=== PATIENT | female | born 1965 | race Caucasian/White ===

== ENCOUNTER → 2018-04-01 | Outpatient (CLI) | payer OTHER ==
--- NOTE | 2018-04-01 12:31 | Diagnostic Imaging Report ---
EXAMINATION: PA and lateral views of the chest. COMPARISON: None CLINICAL HISTORY: Bronchitis DISCUSSION: The lungs are well-inflated. No focal airspace consolidation, pleural effusion, or pneumothorax. Dense nodular opacity in the retrocardiac region may represent a lower lobe calcified granuloma or a vessel viewed end-on. Cardio mediastinal contour and pulmonary vasculature are within normal limits. No acute osseous abnormality. IMPRESSION: No acute cardiopulmonary abnormality. No consolidative pneumonia. Signed by: Dr. Job Mistry M.D. on 04/01/2018 12:28 PM
== END ==
LOC: RAD 11:25
PROVIDERS: ATTEND Family Medicine
DX: J40 Bronchitis, not specified as acute or chronic (principal)
CPT/HCPCS: 71046

== ENCOUNTER → 2022-06-09 | Day surgery (SDC) | payer OTHER ==
[~2022-06-09] MED LIST: BIOTIN1 MG PO; CRESTOR10 MG PO; DYRENIUM50 MG PO; FENTANYL CITRATE/PF 100MCG/2 ML INJ ONE; LIDOCAINE HCL 2% LOCAL INJ 5 ML SDV VIAL INJ ONE; MAGNESIUM PO; METOCLOPRAMIDE HCL 10 MG/2ML VIAL ONE; MULTI-VITAMIN1 EACH PO; OMEGA 3 FISH O1 EACH PO; OMEPRAZOLE40 MG PO; PROPOFOL IV EMULSION 50 ML IV ONE; SYMBICORT 16010.2 GM INH; VERAPAMIL ER120 MG PO; VITAMIN D310 MCG PO; VITAMIN E400 UNI1 PO
[2022-06-09 14:35] VITALS: BP 139/96
== END | disposition home or self-care (01) ==
LOC: OR 11:49
PROVIDERS: ATTEND Internal Medicine Gastroenterology
DX: Z12.11 Encounter for screening for malignant neoplasm of colon (principal); D12.2 Benign neoplasm of ascending colon; K29.50 Unspecified chronic gastritis without bleeding; K20.90 Esophagitis, unspecified without bleeding; K64.8 Other hemorrhoids; Z71.3 Dietary counseling and surveillance; I10 Essential (primary) hypertension; F41.9 Anxiety disorder, unspecified; Z88.0 Allergy status to penicillin; Z79.899 Other long term (current) drug therapy; Z68.27 Body mass index [BMI] 27.0-27.9, adult; Z85.3 Personal history of malignant neoplasm of breast; Z86.16 Personal history of COVID-19
CPT/HCPCS: 43239; 45385; 93005; C9113; J2001; J2704; J2765; J3010

== ENCOUNTER 2024-08-07 06:54 | Observation (INO) | payer OTHER ==
[2024-08-01 12:54] LABS: BASOPHILS % 0.3 % (0.0-1.0); EOSINOPHILS # (AUTO) 0.1 (0.0-0.4); EOSINOPHILS % 1.2 % (0.0-6.0); HEMATOCRIT 42.5 % (34.2-44.1); HEMOGLOBIN 14.4 g/dL (12.0-16.0); LYMPHOCYTES # (AUTO) 2.1 (1.0-3.2); LYMPHOCYTES % 35.4 % (18.0-39.1); MEAN CORPUSCULAR HEMOGLOBIN 34.3 pg (28-32); MEAN CORPUSCULAR HGB CONC 33.9 g/dL (31-35); MEAN CORPUSCULAR VOLUME 101.2 fL (81-99); MONOCYTES # (AUTO) 0.6 (0.2-0.8); MONOCYTES % 10.7 % (4.4-11.3); NEUTROPHILS # (AUTO) 3.1 (2.1-6.9); NEUTROPHILS % 52.2 % (38.7-80.0); PLATELET COUNT 217 x10e3/uL (140-360); RED CELL DISTRIBUTION WIDTH 13.1 % (11.7-14.4); WHITE BLOOD COUNT 5.87 x10e3/uL (4.8-10.8)
[2024-08-01 13:21] LABS: ANION GAP 16.6 mmol/L (8-16); CALCIUM 9.2 mg/dL (8.4-10.2); CREATININE, SERUM 0.94 mg/dL (0.57-1.11); POTASSIUM 3.6 mmol/L (3.5-5.1)
[~2024-08-07] VITALS: Ht 157.5 cm; Wt 69.9 kg
[~2024-08-07 06:54] MED LIST changes: -FENTANYL CITRATE/PF 100MCG/2 ML INJ ONE; -LIDOCAINE HCL 2% LOCAL INJ 5 ML SDV VIAL INJ ONE; -METOCLOPRAMIDE HCL 10 MG/2ML VIAL ONE; -PROPOFOL IV EMULSION 50 ML IV ONE; +[UNRECOGNIZED DRUG - OTHER] PO
[2024-08-07] MEDS ORDERED: METOPROLOL TART25 MG PO (07:53)
[2024-08-07] MEDS ORDERED: PROPOFOL IV EMULSION 10 MG/ML 20 ML VIAL ONE (09:13)
[2024-08-07] MEDS ORDERED: MIDAZOLAM HCL 2 MG/2 ML VIAL ONE (09:14)
[2024-08-07] MEDS ORDERED: DEXAMETHASONE SOD PHOS INJ 4 MG/ML SDV ONE (09:14)
[2024-08-07] MEDS ORDERED: FENTANYL CITRATE/PF 100MCG/2 ML INJ ONE (09:14)
[2024-08-07] MEDS ORDERED: LIDOCAINE HCL 2% LOCAL INJ 5 ML SDV VIAL INJ ONE (09:14)
[2024-08-07] MEDS ORDERED: ONDANSETRON HCL INJ 2MG/ML 2ML 2 MG/ML VIAL ONE (09:14)
[2024-08-07] MEDS: LACTATED RINGER'S 1,000 ML ONE (09:17)
[2024-08-07] MEDS ORDERED: TRAMADOL HCL 50 MG TAB PO PRN (10:45)
[2024-08-07 12:33] VITALS: BP 135/88; PULSE 70; RESP 15; TEMP 97.6; O2SAT 98
[2024-08-07 12:44] VITALS: BP 116/72; PULSE 68; RESP 18; TEMP 97.3; O2SAT 98
[2024-08-07] MEDS: SODIUM CHLORIDE 0.9% 1000ML 1,000 ML IV SCH (12:56)
[2024-08-07] MEDS: KETOROLAC TROMETHAMINE 30 MG/ML VIAL IV PRN (13:30)
[2024-08-07] MEDS ORDERED: NEOSTIGMINE 1 MG/ML 10ML VIAL ONE (15:28)
[2024-08-07 17:13] VITALS: BP 126/80; PULSE 88; RESP 18; TEMP 98.3; O2SAT 98
== END 2024-08-07 18:04 | disposition home or self-care (01) ==
LOC: OR 06:54 → PACU V 10:41 → MED/SURG2 11:49
PROVIDERS: ADMIT Surgery; ATTEND Surgery
DX: K64.8 Other hemorrhoids (principal); K64.4 Residual hemorrhoidal skin tags; I10 Essential (primary) hypertension; E78.5 Hyperlipidemia, unspecified; R05.9 Cough, unspecified; Z88.0 Allergy status to penicillin; Z01.810 Encounter for preprocedural cardiovascular examination; Z01.812 Encounter for preprocedural laboratory examination; Z79.899 Other long term (current) drug therapy
CPT/HCPCS: 36415; 46260; 80048; 85025; 88304; 93005; G0378; J1100; J1885; J2003; J2250; J2405; J2704; J2710; J3010; J7030; J7121